=== PATIENT | male | born 1955 | race Caucasian/White ===

== ENCOUNTER 2023-06-12 14:46 | Outpatient (REF) | payer MEDICARE, SELFPAY ==
[2023-06-12 16:48] LABS: INR 1.81 (0.91-1.10); Prothrombin Time 21.9 Seconds
== END 2023-06-12 14:47 | disposition home or self-care (01) ==
LOC: NPINS 14:46
PROVIDERS: PCP Physician Assistant Medical; Visit Provider Family Medicine
DX: Z79.01 Long term (current) use of anticoagulants (principal)
CPT/HCPCS: 85610

== ENCOUNTER 2023-06-26 09:18 | Outpatient (CLI) | payer MEDICARE, SELFPAY ==
--- NOTE | 2023-06-26 09:45 | CRLHL7_ITS ---
For Patients: As a result of the Century Cures Act, medical imaging exams and procedure reports are released immediately into your electronic medical record. You may view this report before your referring provider. If you have questions, please contact your health care provider. INDICATION: document blood flow. hx of left GSV removal for bypass COMPARISON: None available TECHNIQUE: A duplex venous ultrasound exam was performed of the left lower extremity using velazquez scale imaging, color Doppler and spectral Doppler analysis. Pre- and post compression images were obtained. The size of the superficial veins were recorded, along with reflux times if applicable. FINDINGS: In the left lower extremity deep venous system, there is normal compressibility, color Doppler venous blood flow and augmentation within the common femoral vein, superficial femoral vein, popliteal vein, and posterior tibial veins. Postprocedural changes of left GSV removal for bypass surgery. No insufficiency noted. IMPRESSION: Normal blood flow within the left lower extremity venous system status post GSV removal. No reflux. Dictated by Mejia Villafana MD @ 06/27/2023 10:13:47 AM (Electronically Signed)
== END 2023-06-26 09:19 | disposition home or self-care (01) ==
LOC: US 09:19
PROVIDERS: PCP Physician Assistant Medical; Visit Provider Physician Assistant Medical
DX: I87.2 Venous insufficiency (chronic) (peripheral) (principal)
CPT/HCPCS: 93971

== ENCOUNTER 2023-11-01 15:09 | Outpatient (CLI) | payer MEDICARE, SELFPAY | END 2023-11-01 15:10 | disposition home or self-care (01) | PROVIDERS: PCP Physician Assistant Medical; Visit Provider Physician Assistant Medical | DX: Z00.00 Encounter for general adult medical examination without abnormal findings (principal); I10 Essential (primary) hypertension; E78.5 Hyperlipidemia, unspecified; Z79.01 Long term (current) use of anticoagulants; Z12.5 Encounter for screening for malignant neoplasm of prostate | CPT/HCPCS: 80053; 80061; 84443; G0103 ==

== ENCOUNTER 2024-02-22 09:35 | Outpatient (CLI) | payer MEDICARE, SELFPAY | END 2024-02-22 09:36 | disposition home or self-care (01) | LOC: NFLDREF 03-11 09:09 | PROVIDERS: PCP Physician Assistant Medical; Referring Provider Physician Assistant Medical; Visit Provider Physician Assistant Medical | DX: I99.8 Other disorder of circulatory system (principal); Z79.01 Long term (current) use of anticoagulants | CPT/HCPCS: 85610 ==

== ENCOUNTER 2024-02-26 12:43 | Outpatient (CLI) | payer MEDICARE, SELFPAY ==
--- NOTE | 2024-02-26 13:00 | CRLHL7_ITS ---
For Patients: As a result of the Century Cures Act, medical imaging exams and procedure reports are released immediately into your electronic medical record. You may view this report before your referring provider. If you have questions, please contact your health care provider. Indication: Facet arthropathy and foraminal stenosis Technique: Multiplanar, multisequence, MRI of the lumbar spine, obtained without contrast. Comparison: Lumbar spine x-ray 02/14/2024 Findings: Mild lumbar levoconvex curvature, with preserved lordosis. Trace degenerative retrolisthesis at L3-4 and L4-5. No acute osseous abnormality. Unremarkable bone marrow signal. Conus medullaris terminates at L2-L3. No suspicious findings identified in the paraspinal soft tissues. Incidental right renal cyst. Unremarkable included SI joints. T12-L1: No neural foraminal or spinal canal stenosis. L1-L2: Minimal disc bulge. No neural foraminal or spinal canal stenosis. L2-L3: Minimal disc bulge. No neural foraminal or spinal canal stenosis. L3-L4: Mild diffuse disc bulge, mild facet arthropathy. No neural foraminal or spinal canal stenosis L4-L5: Diffuse disc bulge, mild facet arthropathy, ligamentum flavum laxity. Moderate bilateral neural foraminal stenosis. Mild-moderate spinal canal narrowing with likely descending right L5 nerve root impingement along the lateral recess. L5-S1: Diffuse disc bulge with left eccentric disc-osteophyte complex, left asymmetric facet arthropathy. Mild right, moderate left neural foraminal stenosis. No spinal canal stenosis. Impression: 1. Lumbar spondylosis, slight levoconvex curvature, and trace degenerative spondylolisthesis as detailed. 2. At L4-L5, moderate bilateral neural foraminal stenosis, mild-moderate spinal canal narrowing, and likely right L5 nerve root impingement along the lateral recess. 3. At L5-S1, moderate left neural foraminal stenosis, and mild right neural foraminal narrowing. Dictated by Sri Fairchild MD @ 02/27/2024 2:08:43 PM (Electronically Signed)
== END 2024-02-26 12:44 | disposition home or self-care (01) ==
PROVIDERS: PCP Nurse Practitioner Family; Visit Provider Nurse Practitioner Family
DX: M54.10 Radiculopathy, site unspecified (principal); M47.896 Other spondylosis, lumbar region; M48.061 Spinal stenosis, lumbar region without neurogenic claudication; M48.07 Spinal stenosis, lumbosacral region
CPT/HCPCS: 72148

== ENCOUNTER 2024-05-02 10:34 | Outpatient (CLI) | payer MEDICARE, SELFPAY | END 2024-05-02 10:35 | disposition home or self-care (01) | LOC: NFLDREF 05-04 10:13 | PROVIDERS: PCP Nurse Practitioner Family; Referring Provider Nurse Practitioner Family; Visit Provider Family Medicine | DX: Z86.718 Personal history of other venous thrombosis and embolism (principal); Z79.01 Long term (current) use of anticoagulants | CPT/HCPCS: 85610 ==

== ENCOUNTER 2025-01-01 08:48 | Outpatient (CLI) | payer MEDICARE, SELFPAY | END 2025-01-01 08:49 | disposition home or self-care (01) | LOC: NFLDREF 01-04 13:54 | PROVIDERS: PCP Nurse Practitioner Family; Referring Provider Nurse Practitioner Family; Visit Provider Physician Assistant Medical | DX: Z12.5 Encounter for screening for malignant neoplasm of prostate (principal); I25.10 Atherosclerotic heart disease of native coronary artery without angina pectoris; I10 Essential (primary) hypertension; E78.2 Mixed hyperlipidemia; I50.20 Unspecified systolic (congestive) heart failure | CPT/HCPCS: 80061; 84443; 84450; 84460; G0103 ==

== ENCOUNTER 2025-06-15 17:10 | Outpatient (CLI) | payer MEDICARE, SELFPAY ==
--- NOTE | 2025-06-15 17:30 | CRLHL7_ITS ---
For Patients: As a result of the Century Cures Act, medical imaging exams and procedure reports are released immediately into your electronic medical record. You may view this report before your referring provider. If you have questions, please contact your health care provider. INDICATION: Lumbar spondylosis. TECHNIQUE: Multisequence multiplanar MRI of the lumbar spine without the use of intravenous contrast. COMPARISON: MRI lumbar spine dated 02/26/2024. FINDINGS: Normal vertebral alignment and stature. No T1 hypointense infiltrative lesion. Similar multilevel disc desiccation and height loss. The conus medullaris terminates normally at the L2 level. A circumscribed exophytic right lower pole renal parenchymal hyperintensity is not unchanged and most typical for a cyst. T12-L1, L1-L2, and L2-L3: Shallow symmetric disc bulging. No significant spinal canal or neural foraminal stenosis. L3-L4: Symmetric disc bulge. Mild facet joint arthrosis. No significant spinal canal or neural foraminal stenosis. L4-L5: Posterior disc bulge eccentric to the right. Moderate right facet joint arthrosis. Similar mild spinal canal stenosis with narrowing of the right lateral recess. Similar moderate right and mild left neural foraminal narrowing. L5-S1: Symmetric disc bulge. Moderate left facet joint arthrosis. No significant spinal canal stenosis or right neural foraminal narrowing. Slight worsening of moderate left neural foraminal narrowing. IMPRESSION: 1. At L4-L5, similar mild spinal canal stenosis with narrowing of the right lateral recess and similar moderate right neural foraminal narrowing. 2. At L5-S1, slight worsening of moderate left neural foraminal narrowing. Dictated by Stu Dowell MD @ 06/16/2025 11:39:51 AM (Electronically Signed)
== END 2025-06-15 17:11 | disposition home or self-care (01) ==
LOC: MRI 17:10
PROVIDERS: PCP Nurse Practitioner Family; Visit Provider Nurse Practitioner Family
DX: M47.816 Spondylosis without myelopathy or radiculopathy, lumbar region (principal); M51.26 Other intervertebral disc displacement, lumbar region; M48.061 Spinal stenosis, lumbar region without neurogenic claudication
CPT/HCPCS: 72148